=== PATIENT | male | born 1950 | race Caucasian/White ===

== ENCOUNTER → 2016-10-22 | Outpatient (CLI) | payer BC ==
[2016-10-22 19:11] LABS: Basophils # (A) 0.1 k/uL (0-0.2); Basophils % (A) 1 %; CH 26.2; CHCM 31.5; Eosinophils # (A) 0.2 k/uL (0-0.7); Eosinophils % (A) 3 %; HCT 43.9 % (39.0-53.0); HDW 2.52; HGB 13.2 gm/dL (13.0-17.5); Luc # (Auto) 0.06; Luc % (Auto) 1; Lymphocytes # (A) 2.1 k/uL (1.0-4.8); Lymphocytes % (A) 28 %; MCH 25.1 pg (25.0-35.0); MCHC 30.1 g/dL (31.0-37.0); MCV 83.5 fL (80.0-100.0); Mean Platelet Volume 8.2; Monocytes # (A) 0.4 k/uL (0-1.0); Monocytes % (A) 5 %; Neutrophils # (A) 4.7 k/uL (1.3-7.7); Neutrophils % (A) 63 %; RBC 5.26 m/uL (4.30-5.90); RDW 14.3 % (11.5-15.5); WBC 7.4 k/uL (3.8-10.6); WBC (Perox) 7.38
[2016-10-22 19:17] LABS: ALT 57 U/L (21-72); AST 46 U/L (17-59); Alkaline Phosphatase 69 U/L (38-126); Anion Gap 13 mmol/L; Blood Urea Nitrogen 32 mg/dL (9-20); Calcium 9.7 mg/dL (8.4-10.2); Carbon Dioxide 26 mmol/L (22-30); Chloride 105 mmol/L (98-107); Cholesterol 160 mg/dL (<200); Glucose 94 mg/dL (74-99); HDL Cholesterol 48 mg/dL (40-60); Non-African American GFR(MDRD) >60 (>60 ml/min/1.73 sqM); Potassium 4.4 mmol/L (3.5-5.1); Sodium 144 mmol/L (137-145); Total Bilirubin 0.6 mg/dL (0.2-1.3); Total Protein 7.4 g/dL (6.3-8.2); Triglycerides 193 mg/dL (<150)
== END | disposition home or self-care (01) ==
LOC: MMGSC 11:31
PROVIDERS: ATTEND Family Medicine
DX: I10 Essential (primary) hypertension (principal); Z12.5 Encounter for screening for malignant neoplasm of prostate
CPT/HCPCS: 84439; 80061; 80053; 84443; 85025; 36415; G0103

== ENCOUNTER → 2017-11-29 | Outpatient (CLI) | payer MEDICARE, BC ==
[2017-11-29 18:52] LABS: ALT 58 U/L (21-72); AST 64 U/L (17-59); Albumin 4.6 g/dL (3.5-5.0); Alkaline Phosphatase 78 U/L (38-126); Anion Gap 15 mmol/L; Blood Urea Nitrogen 36 mg/dL (9-20); Calcium 9.9 mg/dL (8.4-10.2); Carbon Dioxide 27 mmol/L (22-30); Chloride 101 mmol/L (98-107); Cholesterol 152 mg/dL (<200); Glucose 135 mg/dL (74-99); HDL Cholesterol 43 mg/dL (40-60); LDL Cholesterol,Calculated 69 mg/dL (0-99); Potassium 4.2 mmol/L (3.5-5.1); Sodium 143 mmol/L (137-145); Total Bilirubin 0.5 mg/dL (0.2-1.3); Total Protein 7.5 g/dL (6.3-8.2); Triglycerides 201 mg/dL (<150)
[2017-11-29 18:58] LABS: Basophils # (A) 0.1 k/uL (0-0.2); Basophils % (A) 1 %; Eosinophils # (A) 0.3 k/uL (0-0.7); Eosinophils % (A) 4 %; HCT 43.6 % (39.0-53.0); HGB 13.1 gm/dL (13.0-17.5); Hypochromasia Slight; Lymphocytes # (A) 1.8 k/uL (1.0-4.8); Lymphocytes % (A) 24 %; MCH 25.7 pg (25.0-35.0); MCV 85.5 fL (80.0-100.0); Mean Platelet Volume 7.6; Monocytes # (A) 0.4 k/uL (0-1.0); Monocytes % (A) 5 %; Neutrophils # (A) 4.7 k/uL (1.3-7.7); Neutrophils % (A) 65 %; Platelet Count 331 k/uL (150-450); RBC 5.09 m/uL (4.30-5.90); RDW 14.1 % (11.5-15.5); WBC 7.2 k/uL (3.8-10.6)
[2017-11-29 19:09] LABS: T4, Free (Free Thyroxine) 1.27 ng/dL (0.78-2.19)
== END | disposition home or self-care (01) ==
LOC: MMGSC 11:19
PROVIDERS: ATTEND Family Medicine
DX: Z00.00 Encounter for general adult medical examination without abnormal findings (principal); I10 Essential (primary) hypertension; E78.5 Hyperlipidemia, unspecified; Z12.5 Encounter for screening for malignant neoplasm of prostate
CPT/HCPCS: 84439; 80053; 80061; 84443; 85025; 36415; G0103; 99214

== ENCOUNTER → 2020-04-11 | Outpatient (CLI) | payer BC, OTHER, MEDICARE | END | disposition home or self-care (01) | LOC: LABWHC1 11:26 | PROVIDERS: ATTEND Surgery Plastic and Reconstructive Surgery | DX: I10 Essential (primary) hypertension (principal) | CPT/HCPCS: 36415; 93005 ==

== ENCOUNTER → 2020-06-20 | Outpatient (CLI) | payer OTHER, MEDICARE ==
[2020-06-20 11:55] LABS: HCT 37.1 % (39.0-53.0); HGB 11.6 gm/dL (13.0-17.5); MCH 25.9 pg (25.0-35.0); MCHC 31.3 g/dL (31.0-37.0); MCV 82.7 fL (80.0-100.0); Platelet Count 292 k/uL (150-450); RBC 4.48 m/uL (4.30-5.90); RDW 14.5 % (11.5-15.5); WBC 7.4 k/uL (3.8-10.6)
[2020-06-20 12:09] LABS: Magnesium 2.1 mg/dL (1.6-2.3)
== END | disposition home or self-care (01) ==
LOC: LABPAT 10:46
PROVIDERS: ATTEND Internal Medicine Cardiovascular Disease
DX: Z01.818 Encounter for other preprocedural examination (principal); I42.0 Dilated cardiomyopathy
CPT/HCPCS: 36415; 82565; 83735; 84520; 85027

== ENCOUNTER 2020-06-27 07:41 | Day surgery (SDC) | payer BC, OTHER, MEDICARE ==
[2020-06-26 08:24] VITALS: BMI 27.6
[~2020-06-27 07:41] MED LIST: ALPRAZolam 0.25 MG TAB PO PRN; ALPRAZolam 0.5 MG TAB PO PRN; ASPIRIN 325 MG TAB PO ONE; ATORVASTATIN 80 MG TAB PO ONE; NITROGLYCERIN SL TABS 0.4 MG TAB SUBLINGUAL PRN; SODIUM CHLORIDE 0.9% 1,000 ML in EMPTY BAG 1 BAG IV ONE
[2020-06-27 08:37] VITALS: RESP 16; TEMP 97.7
[2020-06-27] MEDS ORDERED: LIDOCAINE 1% INJ 10MG/ML (20 ML MDV) ONE (10:03)
[2020-06-27] MEDS ORDERED: fentaNYL (PF) 50 MCG/ML 2 ML AMP ONE (10:03)
[2020-06-27] MEDS ORDERED: IV FLUID CONTINUATION 950 ML IV ONE (10:13)
[2020-06-27] MEDS ORDERED: fentaNYL (PF) 50 MCG/ML 2 ML AMP IVP ONE (10:31)
[2020-06-27] MEDS ORDERED: MIDAZOLAM 2 MG/2 ML VIAL IVP ONE (10:32)
[2020-06-27] MEDS ORDERED: LIDOCAINE 1% INJ 10MG/ML (20 ML MDV) SQ ONE (10:35)
[2020-06-27] MEDS ORDERED: IOPAMIDOL-370 125ML BTL INJ ONE (10:49)
[2020-06-27] MEDS ORDERED: RX INFO: IV CONTRAST WAS GIVEN 1 EACH MISC MISCELLANE PRN (10:59)
[2020-06-27] MEDS ORDERED: SODIUM CHLORIDE 0.9% 1,000 ML IV SCH (11:00)
--- NOTE | 2020-06-27 12:36 | CC ---
CARDIAC CATHETERIZATION REPORT INDICATION: Cardiomyopathy. PROCEDURE NOTE: After obtaining informed consent, left heart catheterization and coronary angiogram were performed via the right femoral artery using standard Kaykay catheters. Patient tolerated the procedure well without any obvious immediate complications. A femoral angiogram was performed and Angio-Seal was deployed for hemostasis. Patient received moderate conscious sedation. Total sedation time was 17 minutes. FINDINGS: HEMODYNAMICS: Left ventricular end-diastolic pressure is 10 mm. There is no significant gradient across the aortic valve. LEFT VENTRICULOGRAM: Left ventriculogram is not performed. ANGIOGRAPHIC DATA: LEFT MAIN CORONARY ARTERY: LEFT MAIN: Left main coronary artery is a normal-sized vessel and is free of stenosis. It gives off a large caliber LAD that wraps around the apex of the heart. LAD and its branches are free of significant stenosis. RIGHT CORONARY ARTERY: Right coronary artery is a large dominant vessel and is free of stenosis. 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 CONCLUSIONS: 1. Right-dominant circulation. 2. Anomalous circumflex coronary artery. 3. 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 PLAN: Patient's cardiomyopathy is unrelated to ischemic heart disease. Her management is going to be in the form of optimal therapy for cardiomyopathy and risk factor modification. MMODL / IJN: [id number] /
[2020-06-27 15:00] VITALS: BP 114/56
[2020-06-27 16:23] VITALS: PULSE 62
== END 2020-06-27 15:35 | disposition home or self-care (01) ==
LOC: CATHCVL 07:41
PROVIDERS: ATTEND Internal Medicine Cardiovascular Disease
DX: I42.0 Dilated cardiomyopathy (principal); I25.10 Atherosclerotic heart disease of native coronary artery without angina pectoris; I10 Essential (primary) hypertension; Z72.0 Tobacco use; E78.2 Mixed hyperlipidemia; I44.7 Left bundle-branch block, unspecified; R94.39 Abnormal result of other cardiovascular function study; R93.1 Abnormal findings on diagnostic imaging of heart and coronary circulation; Z79.82 Long term (current) use of aspirin; Z79.899 Other long term (current) drug therapy
CPT/HCPCS: 93458; C1769 ×2; C1760; C1894; J2250; J2001; J3010; Q9967

== ENCOUNTER 2020-08-21 11:49 | Day surgery (SDC) | payer BC, OTHER, MEDICARE ==
[2020-08-19 09:50] VITALS: BMI 29.5
--- NOTE | 2020-08-21 07:35 | P.GSHP ---
History of Present Illness H&P Date: 08/21/20 CHIEF COMPLAINT: Ventral hernia HISTORY OF PRESENT ILLNESS: The patient is a 70-year-old male who presents with a history of swelling and pain along the abdomen from a hernia. Now he presents for surgical intervention. PAST MEDICAL HISTORY: Please see list. PAST SURGICAL HISTORY: Please see list. MEDICATIONS: Please see list. ALLERGIES: Please see list. SOCIAL HISTORY: No illicit drug use FAMILY HISTORY: No reports of Crohn disease or ulcerative colitis. REVIEW OF ORGAN SYSTEMS: CONSTITUTIONAL: No reports of fevers or chills. No reports of weight loss despite prior attempts. GI: Denies any blood in stools or constipation. PHYSICAL EXAM: VITAL SIGNS: Stable GENERAL: Well-developed pleasant male in no acute distress. HEENT: No scleral icterus. Extraocular movements grossly intact. Moist buccal mucosa. NECK: Supple without lymphadenopathy. CHEST: Unlabored respirations. Equal bilateral excursions. CARDIOVASCULAR: Regular rate and rhythm. Distal 2+ pulses. ABDOMEN: Soft, nondistended. Palpable defect of the abdomen. No peritoneal signs. MUSCULOSKELETAL: No clubbing, cyanosis, or edema. ASSESSMENT: 1. Ventral hernia PLAN: 1. Recommend proceeding with robotic ventral hernia repair with mesh. 2. Benefits and risks of surgical intervention was discussed including possibility of open technique. 3. DVT prophylaxis. 4. Antibiotic prophylaxis. Past Medical History Past Medical History: Eye Disorder, Hyperlipidemia, Hypertension Additional Past Medical History / Comment(s): MAC. DEGEN. BILAT EYES. IRREG HEART BEAT-ARTERIES GO BEHIND HEART MAKING IT SEEM LIKE HE HAS A BBB Last Myocardial Infarction Date:: 2016 History of Any Multi-Drug Resistant Organisms: None Reported Past Surgical History: Heart Catheterization, Orthopedic Surgery, Tonsillectomy Additional Past Surgical History / Comment(s): COLONOSCOPY. RT ROTATOR CUFF REPAIR. FX NOSE SX Past Anesthesia/Blood Transfusion Reactions: No Reported Reaction Smoking Status: Former smoker - Past Family History Father Family Medical History: Cancer Medications and Allergies Home Medications Medication Instructions Recorded Confirmed Type Aspirin EC [Ecotrin Low Dose] 81 mg PO DAILY 06/26/20 08/19/20 History C,E,Zinc,Copper 11/Ywrej1l/Lut 1 each PO DAILY 06/26/20 08/19/20 History [Ocuvite Adult 50 Plus Softgel] Fenofibrate Nanocrystallized 145 mg PO DAILY 06/26/20 08/19/20 History [Fenofibrate] Ibuprofen 800 mg PO QAM 06/26/20 08/19/20 History Metoprolol Succinate [Toprol XL] 25 mg PO DAILY 06/26/20 08/19/20 History Triamterene-Hctz 37.5-25Mg 1 each PO DAILY 06/26/20 08/19/20 History [Dyazide 37.5-25 Capsule] lisinopriL [Zestril] 5 mg PO DAILY 06/26/20 08/19/20 History Allergies Allergy/AdvReac Type Severity Reaction Status Date / Time No Known Allergies Allergy Verified 08/19/20 09:37
[~2020-08-21 11:49] MED LIST changes: +ACETAMINOPHEN TAB 500 MG TAB PO STA; -ALPRAZolam 0.25 MG TAB PO PRN; -ALPRAZolam 0.5 MG TAB PO PRN; -ASPIRIN 325 MG TAB PO ONE; -ATORVASTATIN 80 MG TAB PO ONE; +DEXAMETHASONE SOD PHOSPHATE 4 MG/ML 1 ML VIAL IV ONE; +GABAPENTIN 300 MG CAP PO STA; +HEPARIN SODIUM,PORCINE 5,000 UNIT/ML 1 ML VIAL SQ ONE; +HYDROmorphone 0.5 MG/0.5 ML SYRINGE IVP PRN; +LACTATED RINGERS 1,000 ML IV SCH; -NITROGLYCERIN SL TABS 0.4 MG TAB SUBLINGUAL PRN; +ONDANSETRON 4 MG/2 ML VIAL IVP ONE; -SODIUM CHLORIDE 0.9% 1,000 ML in EMPTY BAG 1 BAG IV ONE; +TAMSULOSIN 0.4 MG CAP.ER.24H PO STA
[2020-08-21] MEDS ORDERED: MIDAZOLAM 2 MG/2 ML VIAL IVP ONE (13:55)
[2020-08-21] MEDS ORDERED: fentaNYL (PF) 50 MCG/ML 2 ML AMP IVP ONE (13:57)
--- NOTE | 2020-08-21 14:33 | P.ANPRN ---
Procedure Note - Anesthesia - Nerve Block Performed Bilateral Rectus Abdominis Single Time Out Performed: Yes Date of Procedure: 08/21/20 Procedure Start Time: 13:55 Procedure Stop Time: 14:03 Location of Patient: PreOp Indication: Requested by Surgeon Specifically requested for management of pain by DrTeddy: Marizol Coleman Sedation Type: Sedate with meaningful contact maintained Preparation: Sterile Prep Position: Supine Catheter: None Needle Types: Pajunk Needle Gauge: 21 Ultrasound used to visualize needle placement: Yes Ultrasound used to observe medication spread: Yes Injectate: 0.5% Ropivacaine (see comment for volume) (15 ml plus lidocaine 1 % with epi 1/200 k 5 ml per side) Blood Aspirated: No Pain Paresthesia on Injection Noted: No Resistance on Injection: Normal Image Stored and Saved: Yes Events: Uneventful and Well Tolerated
[2020-08-21] MEDS ORDERED: SUCCINYLCHOLINE CHLORIDE 100 MG/5 ML SYR IV ONE (15:09)
[2020-08-21] MEDS ORDERED: ROPIVACAINE 5 MG/ML 30 ML VIAL ONE (15:09)
[2020-08-21] MEDS ORDERED: PHENYLEPHRINE-0.9% NACL SYG 1 MG/10 ML SYRINGE ONE (15:09)
[2020-08-21] MEDS ORDERED: fentaNYL (PF) 50 MCG/ML 2 ML AMP ONE (15:09)
[2020-08-21] MEDS ORDERED: LIDOCAINE 1% INJ 10MG/ML (20 ML MDV) ONE (15:09)
[2020-08-21] MEDS ORDERED: GLYCOPYRROLATE 0.2 MG/ML 2 ML VIAL ONE (15:09)
[2020-08-21] MEDS ORDERED: ROCURONIUM 10 MG/ML (10 ML VIAL) IV ONE (15:09)
[2020-08-21] MEDS ORDERED: PROPOFOL 10 MG/ML 20 ML VIAL IV ONE (15:09)
[2020-08-21] MEDS ORDERED: NEOSTIGMINE 1 MG/ML 10 ML VIAL ONE (15:09)
[2020-08-21] MEDS ORDERED: LIDOCAINE 1%-EPI 1:100,000 20 ML VIAL ONE (15:09)
[2020-08-21] MEDS ORDERED: MIDAZOLAM 2 MG/2 ML VIAL ONE (15:09)
[2020-08-21] MEDS ORDERED: ePHEDrine SULFATE/0.9% NACL/PF 50 MG/5 ML SYRINGE IV ONE (15:09)
[2020-08-21] MEDS ORDERED: LIDOCAINE 1%-EPI 1:100,000 20 ML VIAL SQ ONE (15:39)
[2020-08-21] MEDS ORDERED: LACTATED RINGERS 1,000 ML IV ONE (16:36)
[2020-08-21 16:52] VITALS: RESP 16; TEMP 97.3
--- NOTE | 2020-08-21 17:08 | P.OP ---
Date of Procedure: 08/21/20 Description of Procedure: SURGEON: MARIZOL COLEMAN MD PREOPERATIVE DIAGNOSES: 1. Initial epigastric ventral hernia with incarceration 2. Hypertensive heart disease 3. Hyperlipidemia 4. Macular degeneration POSTOPERATIVE DIAGNOSES: 1. Initial epigastric ventral hernia with incarceration 2. Hypertensive heart disease 3. Hyperlipidemia 4. Macular degeneration 5. Peritoneal adhesions epigastrium OPERATION: 1. Robotic-assisted da Stephanie Xi laparoscopic lysis of adhesions 2. Robotic-assisted da Stephanie Xi laparoscopic repair of initial incarcerated epigastric ventral hernia without mesh, ventralight ST mesh 11.4 cm Anesthesia: GETA, regional, local Estimated Blood Loss (ml): 5 Pathology: other (Incarcerated hernia sac and contents) Condition: stable Disposition: PACU COMPLICATIONS: None. Operative Findings: 1. Peritoneal adhesions epigastrium omentum to abdominal wall lysed 2. Incarcerated ventral hernia sac with contents 2 cm 3. Oversew of fascia with fascial imbrication without mesh 4. Fascia repaired using #1 V-lock suture, nonabsorbable INDICATIONS: The patient is a 70-year-old male who presents with abdominal wall hernia. Surgical intervention with laparoscopic versus robotic and open techniques were reviewed. Placement of mesh was also reviewed. Benefits and risks were thoroughly described. Informed consent was obtained. DESCRIPTION OF PROCEDURE: The patient was brought into the operating room and laid in supine position. After general induction, the abdomen had been prepped and draped in standard sterile fashion. Ioban draping was also placed. Prior to incision, a timeout protocol was confirmed with surgical team regarding the patient's name including procedures to be performed. The robot was primed prior to the procedure. A field block using local anesthetic was placed along hernia site including the proposed port sites. Initial incision was made with an #11 blade along the left upper quadrant. A 0 degree 5 mm laparoscopic trocar entry was performed and insufflated. Three 8 mm ports were placed along the left lateral abdominal wall under direct localization after exchanging the 5-mm for an 8 mm port. Placements of the ports were 15 cm from the target anatomy and 10 cm apart. An accessory 12 mm port was placed at the right upper quadrant for exchange of mesh including sutures. The [employer] Xi robot was previously primed, prepped and draped then docked from the right side of the patient onto the left side of the patient. I then sat at the robot [employer] Xi console where working arms of the robot including Bovie cautery connected to robotic scissors, needle delivery driver/supervisor, and graspers placed by the hotel administrative assistant. Incarcerated omental contents were found along the upper midline defect. The defect was reduced with preperitoneal fat including the falciform ligament at the upper midline defect. Upper midline defect 2 x 2 cm. The incarcerated contents were reduced as the peritoneal fat was cleaned from the abdominal wall. Next, hemostasis was checked with cautery. The hernia defects were oversewn using #1 nonabsorbable V-lock suture with fascial imbrication x 2. A final endoscopic imaging was obtained. All instruments and pneumoperitoneum were evacuated from the abdominal cavity. The da Stephanie Xi robot was undocked from the patient. I re-scrubbed into the case for closure of incisions. The fascia of the 12-mm port was probed and less than 8-mm in size. The incisions were reapproximated using 4-0 Monocryl in an interrupted subcuticular fashion. Liquid glue was applied to the skin after cleansing the skin with normal saline and dilute hydrogen peroxide. An abdominal binder was placed. An umbilical dressing was placed prior. At the end of the procedure, needle, sponge, and instrument count had been verified correct by medical surgical tech. The patient was taken to the postanesthesia care unit in stable condition. Plan - Discharge Summary Discharge Rx Participant: No New Discharge Prescriptions: New Ibuprofen 800 mg PO Q8HR PRN #30 tablet PRN Reason: Pain Acetaminophen Tab [Tylenol Tab] 1,000 mg PO Q6HR PRN #30 tablet PRN Reason: Pain tiZANidine [Zanaflex] 4 mg PO Q8HR PRN #30 tab PRN Reason: Pain Continue lisinopriL [Zestril] 5 mg PO DAILY Metoprolol Succinate [Toprol XL] 25 mg PO DAILY Aspirin EC [Ecotrin Low Dose] 81 mg PO DAILY Triamterene-Hctz 37.5-25Mg [Dyazide 37.5-25 Capsule] 1 each PO DAILY Fenofibrate Nanocrystallized [Fenofibrate] 145 mg PO DAILY C,E,Zinc,Copper 11/Jgfvw5k/Lut [Ocuvite Adult 50 Plus Softgel] 1 each PO DAILY Discontinued Ibuprofen 800 mg PO QAM Discharge Medication List Aspirin EC [Ecotrin Low Dose] 81 mg PO DAILY 06/26/20 [History] C,E,Zinc,Copper 11/Lzkqk0l/Lut [Ocuvite Adult 50 Plus Softgel] 1 each PO DAILY 06/26/20 [History] Fenofibrate Nanocrystallized [Fenofibrate] 145 mg PO DAILY 06/26/20 [History] Metoprolol Succinate [Toprol XL] 25 mg PO DAILY 06/26/20 [History] Triamterene-Hctz 37.5-25Mg [Dyazide 37.5-25 Capsule] 1 each PO DAILY 06/26/20 [History] lisinopriL [Zestril] 5 mg PO DAILY 06/26/20 [History] Acetaminophen Tab [Tylenol Tab] 1,000 mg PO Q6HR PRN #30 tablet 08/21/20 [Rx] Ibuprofen 800 mg PO Q8HR PRN #30 tablet 08/21/20 [Rx] tiZANidine [Zanaflex] 4 mg PO Q8HR PRN #30 tab 08/21/20 [Rx] Follow up Appointment(s)/Referral(s): Marizol Coleman MD [STAFF PHYSICIAN] - 08/26/20 (CALL TO SET APPOINMENT TIME.) Patient Instructions/Handouts: *[facility] - Managing Your Pain After Surgery Without Opioids, *[facility] - (Anesthesia) Discharge Instructions Outpatient Surgery, Laparoscopic Herniorrhaphy (IP), Abdominal Binder (ED), Ventral Hernia Repair (GEN) Activity/Diet/Wound Care/Special Instructions: Using antibacterial soap. No lifting over 4 pounds 4 weeks, Sep 20February shower. No bathtub soaks for 2 weeks, Sep 04. Wear abdominal binder daily for comfort except for showering. Use ice along incisions for the today to prevent swelling. Discharge Disposition: HOME SELF-CARE
[2020-08-21 17:50] VITALS: BP 111/63; PULSE 76
== END 2020-08-21 18:05 | disposition home or self-care (01) ==
LOC: OR 11:49
PROVIDERS: ATTEND Surgery Plastic and Reconstructive Surgery
DX: K43.6 Other and unspecified ventral hernia with obstruction, without gangrene (principal); K66.0 Peritoneal adhesions (postprocedural) (postinfection); I11.9 Hypertensive heart disease without heart failure; E78.5 Hyperlipidemia, unspecified; H35.30 Unspecified macular degeneration; I49.9 Cardiac arrhythmia, unspecified; I45.4 Nonspecific intraventricular block; I42.9 Cardiomyopathy, unspecified; Z98.890 Other specified postprocedural states; Z90.89 Acquired absence of other organs; Z87.39 Personal history of other diseases of the musculoskeletal system and connective tissue; Z87.81 Personal history of (healed) traumatic fracture; Z87.891 Personal history of nicotine dependence; Z79.82 Long term (current) use of aspirin; Z79.899 Other long term (current) drug therapy; Z79.1 Long term (current) use of non-steroidal anti-inflammatories (NSAID); Z80.9 Family history of malignant neoplasm, unspecified
CPT/HCPCS: 49653; S2900; 64488; 88302

== ENCOUNTER 2021-06-18 06:46 | Day surgery (SDC) | payer BC, MEDICARE ==
[2021-06-17 08:18] VITALS: BMI 30.2
[~2021-06-18 06:46] MED LIST changes: -ACETAMINOPHEN TAB 500 MG TAB PO STA; -DEXAMETHASONE SOD PHOSPHATE 4 MG/ML 1 ML VIAL IV ONE; -GABAPENTIN 300 MG CAP PO STA; -HEPARIN SODIUM,PORCINE 5,000 UNIT/ML 1 ML VIAL SQ ONE; -HYDROmorphone 0.5 MG/0.5 ML SYRINGE IVP PRN; -ONDANSETRON 4 MG/2 ML VIAL IVP ONE; -TAMSULOSIN 0.4 MG CAP.ER.24H PO STA
[2021-06-18 07:19] VITALS: PULSE 73; TEMP 98.2
[2021-06-18] MEDS ORDERED: PROPOFOL 10 MG/ML 20 ML VIAL IV ONE (07:32)
--- NOTE | 2021-06-18 07:37 | P.GSHP ---
History of Present Illness H&P Date: 06/18/21 CHIEF COMPLAINT: Colon screen HISTORY OF PRESENT ILLNESS: The patient is a 71-year-old male who presents for colon screen. Lower endoscopy was offered for further evaluation and management. PAST MEDICAL HISTORY: Please see list. PAST SURGICAL HISTORY: Please see list. MEDICATIONS: Please see list. ALLERGIES: Please see list. SOCIAL HISTORY: No illicit drug use FAMILY HISTORY: No reports of Crohn disease or ulcerative colitis. REVIEW OF ORGAN SYSTEMS: CONSTITUTIONAL: No reports of fevers or chills. PHYSICAL EXAM: VITAL SIGNS: Stable GENERAL: Well-developed pleasant in no acute distress. HEENT: No scleral icterus. Extraocular movements grossly intact. Moist buccal mucosa. NECK: Supple without lymphadenopathy. CHEST: Unlabored respirations. Equal bilateral excursions. CARDIOVASCULAR: Regular rate and rhythm. Distal 2+ pulses. ABDOMEN: Soft, nontender, nondistended. MUSCULOSKELETAL: No clubbing, cyanosis, or edema. ASSESSMENT: 1. Colon screen. PLAN: 1. Recommend proceeding with a lower endoscopy Past Medical History Past Medical History: Eye Disorder, Hyperlipidemia, Hypertension Additional Past Medical History / Comment(s): MAC. DEGEN. BILAT EYES. IRREG HEART BEAT-ARTERIES GO BEHIND HEART MAKING IT SEEM LIKE HE HAS A BBB Last Myocardial Infarction Date:: 2016 History of Any Multi-Drug Resistant Organisms: None Reported Past Surgical History: Heart Catheterization, Hernia Repair, Orthopedic Surgery, Tonsillectomy Additional Past Surgical History / Comment(s): COLONOSCOPY. RT ROTATOR CUFF REPAIR. FX NOSE SX. ventral hernia repair Past Anesthesia/Blood Transfusion Reactions: No Reported Reaction Smoking Status: Former smoker - Past Family History Father Family Medical History: Cancer Medications and Allergies Home Medications Medication Instructions Recorded Confirmed Type Aspirin EC [Ecotrin Low Dose] 81 mg PO DAILY 06/26/20 06/18/21 History C,E,Zinc,Copper 11/Kjsrh1w/Lut 1 each PO DAILY 06/26/20 06/18/21 History [Ocuvite Adult 50 Plus Softgel] Fenofibrate Nanocrystallized 160 mg PO DAILY 06/26/20 06/18/21 History [Fenofibrate] Metoprolol Succinate [Toprol XL] 25 mg PO QAM 06/26/20 06/18/21 History Triamterene-Hctz 37.5-25Mg 1 each PO DAILY 06/26/20 06/18/21 History [Dyazide 37.5-25 Capsule] lisinopriL [Zestril] 5 mg PO QAM 06/26/20 06/18/21 History Ibuprofen 800 mg PO Q8HR PRN #30 tablet 08/21/20 06/18/21 Rx Allergies Allergy/AdvReac Type Severity Reaction Status Date / Time No Known Allergies Allergy Verified 06/18/21 07:12 Surgical - Exam Vital Signs Temp Pulse Resp BP Pulse Ox 98.2 F 73 18 151/71 97 06/18/21 07:18 06/18/21 07:18 06/18/21 07:18 06/18/21 07:18 06/18/21 07:18
--- NOTE | 2021-06-18 07:58 | P.PCN ---
Date of Procedure: 06/18/21 Description of Procedure: PREOPERATIVE DIAGNOSIS: Colonoscopy screening. POSTOPERATIVE DIAGNOSIS: Colonoscopy screening. Diverticulosis, scattered. OPERATION: Colonoscopy to the cecum, ileocecal valve and appendiceal orifice. SURGEON: Marizol Coleman MD. ANESTHESIA: MAC. INDICATIONS: The patient is a 71-year-old male who presents for colonoscopy screening. Last colonoscopy over 10 years ago. Benefits and risks were described and informed consent was obtained. DESCRIPTION OF PROCEDURE: The patient had undergone Sutab prep. The patient had been brought into the operating room and laid in the left lateral decubitus position. After adequate intravenous sedation, the rectum was examined with 2% lidocaine jelly. No external hemorrhoids were encountered. The prostate fossa was unremarkable. The rectal tone was within normal limits. No lesions were palpated in the rectal vault. An Olympus colonoscope was advanced until the cecum, ileocecal valve and appendiceal orifice were clearly viewed. The prep was excellent. Scattered diverticulosis was encountered. No colonic polyps were found. No evidence of focal colitis was found. Retroflexion of the scope demonstrated grade 1 internal hemorrhoids without active bleeding or inflammation. The colon was desufflated. The patient had tolerated the procedure well. Withdrawal time was over 6 minutes. FINDINGS: Aronchick preparation quality scale 1 (1-5) Internal hemorrhoids, grade 1 No external prolapsed hemorrhoids. No arteriovenous malformations. No adenomatous polyps. No focal colitis. Scattered sigmoid diverticulosis. RECOMMENDATIONS: Lower endoscopy in 10 years, 2030 Plan - Discharge Summary Discharge Rx Participant: No New Discharge Prescriptions: Continue lisinopriL [Zestril] 5 mg PO QAM Metoprolol Succinate [Toprol XL] 25 mg PO QAM Aspirin EC [Ecotrin Low Dose] 81 mg PO DAILY Triamterene-Hctz 37.5-25Mg [Dyazide 37.5-25 Capsule] 1 each PO DAILY Fenofibrate Nanocrystallized [Fenofibrate] 160 mg PO DAILY C,E,Zinc,Copper 11/Ukmuz9p/Lut [Ocuvite Adult 50 Plus Softgel] 1 each PO DAILY Ibuprofen 800 mg PO Q8HR PRN #30 tablet PRN Reason: Pain Discharge Medication List Aspirin EC [Ecotrin Low Dose] 81 mg PO DAILY 06/26/20 [History] C,E,Zinc,Copper 11/Pvaqp4v/Lut [Ocuvite Adult 50 Plus Softgel] 1 each PO DAILY 06/26/20 [History] Fenofibrate Nanocrystallized [Fenofibrate] 160 mg PO DAILY 06/26/20 [History] Metoprolol Succinate [Toprol XL] 25 mg PO QAM 06/26/20 [History] Triamterene-Hctz 37.5-25Mg [Dyazide 37.5-25 Capsule] 1 each PO DAILY 06/26/20 [History] lisinopriL [Zestril] 5 mg PO QAM 06/26/20 [History] Ibuprofen 800 mg PO Q8HR PRN #30 tablet 08/21/20 [Rx] Follow up Appointment(s)/Referral(s): Marizol Coleman MD [STAFF PHYSICIAN] - As Needed Patient Instructions/Handouts: Diverticulosis Diet (GEN), Diverticulosis (DC) Activity/Diet/Wound Care/Special Instructions: Repeat colonoscopy in 10 years2030 Discharge Disposition: HOME SELF-CARE
[2021-06-18 07:59] VITALS: RESP 16
[2021-06-18 08:19] VITALS: BP 123/74
== END 2021-06-18 08:48 | disposition home or self-care (01) ==
LOC: ORWHC2ENDO 06:46
PROVIDERS: ATTEND Surgery Plastic and Reconstructive Surgery
DX: Z12.11 Encounter for screening for malignant neoplasm of colon (principal); E78.5 Hyperlipidemia, unspecified; I10 Essential (primary) hypertension; Z87.891 Personal history of nicotine dependence; Z79.899 Other long term (current) drug therapy; I45.4 Nonspecific intraventricular block
CPT/HCPCS: J2704; G0121

== ENCOUNTER → 2023-05-20 | Outpatient (CLI) | payer BC, MEDICARE ==
[2023-05-20 15:53] LABS: Basophils # (A) 0.07 X 10*3/uL (0.00-0.10); Basophils % (A) 0.9 %; Eosinophils # (A) 0.57 X 10*3/uL (0.04-0.35); Eosinophils % (A) 7.1 %; HCT 39.6 % (39.6-50.0); HGB 12.4 d/dL (13.0-17.0); Lymphocytes % (A) 26.3 %; MCH 26.3 pg (27.0-32.0); MCHC 31.3 d/dL (32.0-37.0); MCV 83.9 FL (80.0-97.0); Mean Platelet Volume 10.1 FL (9.5-12.2); Monocytes # (A) 0.68 X 10*3/uL (0.20-1.00); Monocytes % (A) 8.5 %; NRBC Per 100 WBC 0 X 10*3/uL (0.00-0.01); Neutrophils # (A) 4.51 X 10*3/uL (1.80-7.70); Neutrophils % (A) 56.3 %; Platelet Count 302 X 10*3/uL (140-440); RBC 4.72 X 10*6/uL (4.40-5.60); RDW 15.5 % (11.5-14.5)
[2023-05-20 16:14] LABS: ALT 22 U/L (10-49); AST 27 U/L (14-35); Albumin 4.8 d/dL (3.8-4.9); Albumin/Globulin Ratio 2.29 Ratio (1.60-3.17); Alkaline Phosphatase 52 U/L (41-126); BUN/Creat Ratio 20.14 Ratio (12.00-20.00); Blood Urea Nitrogen 28.2 mg/dL (9.0-27.0); Calcium 10.3 mg/dL (8.7-10.3); Carbon Dioxide 24.3 mmol/L (21.6-31.8); Chloride 105 mmol/L (96-109); Globulin 2.1 d/dL (1.6-3.3); Glucose 109 mg/dL (70-110); LDL Cholesterol,Calculated 99.5 mg/dL (0.0-131.0); Sodium 141 mmol/L (135-145); Total Bilirubin 0.4 mg/dL (0.3-1.2); Total Protein 6.9 d/dL (6.2-8.2)
== END | disposition home or self-care (01) ==
LOC: LABWHC1 08:38
PROVIDERS: ATTEND Family Medicine
DX: Z00.00 Encounter for general adult medical examination without abnormal findings (principal); Z12.5 Encounter for screening for malignant neoplasm of prostate
CPT/HCPCS: 80061; 80053; 85025; 36415; G0103

== ENCOUNTER → 2025-05-01 | Outpatient (CLI) | payer MEDICARE ==
--- NOTE | 2025-05-02 20:19 | MR ---
MR hip LT wo con DATE OF EXAM: 05/01/2025 6:08 PM COMPARISON: None. 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 FINDINGS: Marrow: No fracture or femoral head AVN. Scattered favored benign hemangiomas of the lower lumbar malaika tebra and sacrum. Visualized SI joints and pubic symphysis: No advanced degenerative changes. No effusions. Hip joints/cartilage: Tearing and degeneration of the labrum, which appears symmetric to the right si de on the large [id number]-plur images. Diffuse thinning and surface irregularity without focal high-gr kerry defect. No significant effusions. Visualized lumbar spine. Multilevel disc desiccation and spondylosis, worse at L5-S1. Gluteal tendons and musculature: Moderate gluteus medius tendinosis and peritrochanteric edema; simil ar findings appear worse on the right side of the large [id number] images. Tendons intact. No dist inct fluid distention of the bursa. Other Tendons: Left greater than right low-grade tearing and tendinosis of the common hamstring. Soft tissues: Mild focal subcutaneous edema in the left ischiorectal fossa/which abuts the gluteus ma ximus muscle and extends to the skin surface at the inferior gluteal fold. This is nonspecific howeve r asymmetric compared to the right. Colonic diverticulosis. Small bilateral hydroceles. No acute proc ess of the visualized pelvic viscera. No suspicious bilateral adenopathy. IMPRESSION: 1. Right greater than left gluteal tendinosis and peritrochanteric edema. Additional symmetric low-g rade tearing and tendinosis of the common hamstring origins. 2. 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 Additional tearing and degeneration of the labrum. Findings appear grossly symmetric to the right side on the large fie ld-of-view images. [facility], Workstation: [employer], 05/02/2025 8:17 PM
== END | disposition home or self-care (01) ==
LOC: RADMRIMAIN 16:40
PROVIDERS: ATTEND Orthopaedic Surgery
DX: S73.192A Other sprain of left hip, initial encounter (principal); M87.052 Idiopathic aseptic necrosis of left femur; M16.12 Unilateral primary osteoarthritis, left hip